=== PATIENT | male | born 1975 | race Caucasian/White ===

== ENCOUNTER 2023-06-21 08:58 | Day surgery (SDC) | payer BC, MEDICAID ==
[~2023-06-21 08:58] MED LIST: Midazolam 1 MG/ML 2 ML SDV ONE; Propofol 200 MG/20 ML SDV ONE; fentaNYL 50 MCG/ML SDV ONE
[2023-06-21] MEDS ORDERED: Propofol 200 MG/20 ML SDV ONE (09:40)
[2023-06-21] MEDS ORDERED: Lactated Ringers 1,000 ML IV SCH (10:00)
== END 2023-06-21 13:40 | disposition home or self-care (01) ==
LOC: JP.SDS 08:58
PROVIDERS: ATTEND Student in an Organized Health Care Education/Training Program
DX: R10.13 Epigastric pain (principal); K31.7 Polyp of stomach and duodenum; K62.1 Rectal polyp; K29.80 Duodenitis without bleeding; K29.50 Unspecified chronic gastritis without bleeding; K63.5 Polyp of colon; I10 Essential (primary) hypertension; Z79.899 Other long term (current) drug therapy
CPT/HCPCS: 43239; 45380; 88305; J2250; J2704; J3010; J7120